=== PATIENT | male | born 1970 | race Caucasian/White ===

== ENCOUNTER 2022-08-10 08:24 | Outpatient (CLI) | payer OTHER, SELFPAY ==
--- NOTE | ~2022-08-10 | CT_ITS ---
CT Abdomen and Pelvis with contrast. History: Right lower quadrant pain. Spiral CT of the abdomen and pelvis was performed after the administration of intravenous contrast. 1 00 cc of Omnipaque 350 was administered intravenously without complication. Dose reduction technique was used on this scan by utilizing automated exposure control and iterative reconstruction technique. The dose-length product (DLP) was 715.56 mGy-cm. Findings: Scans through the lung bases demonstrate mild atelectatic change. The liver, spleen, pancreas, gallbladder, adrenals and kidneys are within normal limits. No evidence of aortic aneurysm. No lymphadenopathy is seen. There is no evidence of bowel obstruction. There is a large appendicolith at the base of the appendix measuring 1.9 x 1.0 cm. Appendix is dilated up to 15 mm in this region, mild periappendiceal inflamm atory stranding. No abscess or free air. Images through the pelvis were performed. Urinary bladder unremarkable. Prostate gland and seminal ve sicles are unremarkable. No ascites is seen. Impression: Findings suspicious for early acute appendicitis, as detailed above, with large appendicolith present . No abscess or free air. Reviewed, dictated and finalized at location . [employer] Impression: Findings suspicious for early acute appendicitis, as detailed above, with large appendicolith present. No abscess or free air.
[2022-08-10 08:55] LABS: Estimated Glomerular Filt Rate > 60
[2022-08-10 09:53] LABS: Basophils Percent Auto 0.2 % (0.2-1.2); Eosinophils Absolute Auto 0.2 K/mm3 (0-0.3); Eosinophils Percent Auto 1.7 % (0-4.4); Hematocrit 43.6 % (42.0-52.0); Hemoglobin 14.7 g/dL (14.0-18.0); Immature Granulocyte Absolute 0.05 K/mm3 (0.00-0.031); Immature Granulocyte Percent A 0.5 % (0-0.5); Lymphocytes Absolute Auto 1.36 K/mm3 (0.9-3.2); Lymphocytes Percent Auto 14.6 % (18.3-44.2); Mean Corpuscular HGB Conc 33.7 g/dl (32-36); Mean Corpuscular Hemoglobin 29.1 pg (26-34); Mean Corpuscular Volume 86.2 fl (80-100); Mean Platelet Volume 8.5 fl (7.4-10.4); Monocytes Absolute Auto 0.7 K/mm3 (0.1-0.6); Monocytes Percent Auto 7.8 % (2.6-8.5); Neutrophils Percent Auto 75.2 % (45.5-73.1); Platelet Count Result 269 k/mm3 (150-375); Red Blood Count 5.06 M/mm3 (4.6-6.20); Red Cell Distribution Width 13.2 % (11.5-14.5); White Blood Count 9.3 K/mm3 (4.5-10.0)
[2022-08-10 10:14] LABS: Alanine Aminotransferase 36 U/L (6-50); Albumin Level 4.6 g/dL (3.5-5.1); Alkaline Phosphatase 83 U/L (38-126); Anion Gap 7 mmol/L (8-16); Aspartate Amino Transferase 35 U/L (17-59); Bilirubin,Total 0.7 mg/dL (0.2-1.3); Blood Urea Nitrogen 16 mg/dL (9-20); Calcium 8.6 mg/dL (8.4-10.2); Carbon Dioxide 31 mmol/L (22-30); Chloride 99 mmol/L (98-107); Estimated Glomerular Filt Rate > 60; Glucose 105 mg/dL (65-110); Potassium 4.1 mmol/L (3.4-5.0); Sodium 137 mmol/L (137-145)
[2022-08-10 10:19] LABS: Add Urine Microscopic? NO; Appearance Urine Clear (Clear); Bilirubin Urine Negative (Negative); Blood Urine Negative (Negative); Color Urine Yellow (Yellow); Glucose Urine UA Negative (Negative); Ketones Urine Negative (Negative); Leukocyte Esterase Ur Negative LEU/UL (NEGATIVE); Nitrate Urine Negative (Negative); Protein Urine Negative (Negative); Specific Grav Ur <= 1.005 (1.001-1.035); Urobilinogen Urine 0.2 mg/dL (<2.0); pH Urine 5.5 (5.0-9.0)
== END 2022-08-10 08:25 | disposition home or self-care (01) ==
PROVIDERS: PCP Family Medicine; Visit Provider Physician Assistant
DX: R10.31 Right lower quadrant pain (principal); K38.1 Appendicular concretions
CPT/HCPCS: 74177; 80053; 81003; 85025; Q9967

== ENCOUNTER 2022-08-10 09:58 | Day surgery (SDC) | payer OTHER, SELFPAY ==
[2022-08-10] VITALS (12 sets, daily range): BP systolic 116–147; BP diastolic 70–94; PULSE 72–117; RESP 12–16; TEMP 36.2–36.7; O2SAT 93–100
--- NOTE | 2022-08-10 10:06 | ED.ABDPAIN ---
HPI - Abdominal Pain General Chief Complaint: Abdominal Pain <MARIA C Arellano Last Filed: 08/10/22 13:17> Stated Complaint: acute appendicitis <MARIA C Arellano Last Filed: 08/10/22 13:17> Time Seen by Provider: 08/10/22 10:05 <MARIA C Arellano Last Filed: 08/10/22 13:17> Source: patient <MARIA C Arellano Last Filed: 08/10/22 13:17> Mode of arrival: ambulatory <MARIA C Arellano Last Filed: 08/10/22 13:17> Limitations: no limitations <MARIA C Arellano Last Filed: 08/10/22 13:17> History of Present Illness HPI narrative: This is a 52-year-old male that presents emergency department for right lower quadrant pain. Reports he has been having abdominal pain ongoing over the last 2 days. On Tuesday he started to have generalized abdominal pain. Yesterday it started to localize to the right lower quadrant. It is associated with nausea and anorexia. He saw his primary care provider today and had outpatient blood work and a CT scan. His CT scan showed acute appendicitis so he was prompted to be seen in the ER. He has not eaten today yet, he did drink some water around 7 this morning. Denies fever, vomiting, dysuria, or hematuria. <MARIA C Arellano Last Filed: 08/10/22 13:17> Related Data Home Medications: Home Medications Medication Instructions Recorded Confirmed methocarbamol 750 mg tablet 750 mg PO QID 07/24/19 08/10/22 omega-3 fatty acids 1,000 mg 1,000 mg PO DAILY 07/24/19 08/10/22 capsule (Fish Oil Concentrate) glucosamine sulfate 1,500 mg oral mg PO 05/20/20 08/10/22 powder packet multivitamin (One-A-Day Essential 1 tablet PO DAILY 05/20/20 08/10/22 tablet) cholestyramine-aspartame 4 gram 4 g PO TID 08/27/20 08/10/22 oral powder (Cholestyramine Light) <MARIA C Arellano Last Filed: 08/10/22 13:17> Allergies/Adverse Reactions: Allergies Allergy/AdvReac Type Severity Reaction Status Date / Time lisinopril AdvReac Unknown Cough Verified 08/10/22 12:22 <Dominique Orourke PA-C - Last Filed: 08/10/22 13:17> Review of Systems Review of Systems: CONSTITUTIONAL: Denies fever EYES: Denies redness, or discharge. ENT: Denies congestion CARDIOVASCULAR: Denies chest pain RESPIRATORY: Denies cough GASTROINTESTINAL: Reports abdominal pain, nausea. Denies vomiting GENITOURINARY: Denies dysuria or hematuria. MUSCULOSKELETAL: Reports chronic back pain NEUROLOGIC: Denies weakness. PSYCHIATRIC: Denies anxiety or depression. <Dominique Orourke PA-C - Last Filed: 08/10/22 13:17> All systems reviewed & are unremarkable except as noted in HPI and below <Dominique Orourke PA-C - Last Filed: 08/10/22 13:17> [facility], [facility] Past Medical History Medical History: Medical History Chronic low back pain Essential (primary) hypertension Irritable bowel syndrome with diarrhea Mixed hyperlipidemia <MARIA C Arellano Last Filed: 08/10/22 13:17> Surgical History Surgical History: Surgical History Status post wisdom tooth extraction <MARIA C Arellano Last Filed: 08/10/22 13:17> Family History Family History: Family History Mother Cerebrovascular accident Family history of hypothyroidism Family history of diabetes mellitus in first degree relative <MARIA C Arellano Last Filed: 08/10/22 13:17> Social History Social History: Social History Smoking status: Never smoker Second hand tobacco smoke exposure: No Alcohol intake: current Drinks per week: 2 Substance use: never Substance use type: does not use Gender identity (if verbalized by the patient): Male <Dominique Orourke PA-C - Last Filed: 08/10/22 13:17> Exam Narrative: GENERAL: Well-ap
[2022-08-10] MEDS: ONDANSETRON INJ 4 MG/2 ML VIAL IV PUSH (10:26)
--- NOTE | 2022-08-10 11:38 | PM.IMHP ---
H&P: HPI History of Present Illness Date/Time: 08/10/22 11:28 Chief Complaint: right lower quadrant abdominal pain Narrative: This is a pleasant 52-year-old white male who began having some abdominal pain or just uncomfortable feeling across the abdomen mid day on Tuesday. Pt states that starting Tuesday, he developed diffuse lower abdominal pain during day, just below the belly button.? The following day, this localized/migrated to RLQ and has stayed there since.? States pain is 7/10 currently, but 9/10 at its worse.? He has a hard time describing, but states the pain is always there, not dull, and radiates/expands from the RLQ.? He has been nauseous, but has not vomited.? His Last bowel movement was mid day on 08/09. This was normal for him.? He has been drinking fluids okay, but has a poor appetite due to the nausea. States that any movements or deep breathes worsens the pain.?? He is passing gas okay.? Denies changes in stools character/frequency, urine, back pain, blood/mucus in stool, melena, recent alcohol use, NSAID use, association w/ any foods, or any previous abdominal surgeries (still has GB and appendix).? Last colonoscopy was [address] Narayan. he has also had multiple EGDs because of his history of GERD. Further workup in the ED reveals outpatient labs that showed a CBC in the high normal range. Electrolytes were unremarkable. Review of Systems Review of Systems: All systems reviewed & are unremarkable except as noted in HPI and below (HPI) Constitutional: Constitutional: Reports as per HPI, Denies chills and Denies fever(s) Eyes: Eyes: Reports no additional eye complaints ENT: Reports Normal hearing present and Denies dizziness Cardiovascular: Cardiovascular: Reports no additional cardiovascular complaints, Denies chest pain and Denies irregular heart rhythm Comments: History of hypertension and hyperlipidemia (controlled on meds ) --- see medication list Respiratory: Respiratory: Reports no additional respiratory complaints Comments: history of seasonal allergies and asthma. Patient states he has not used his rescue inhaler which is albuterol for many months. However, he does take 2 puffs of the fluticasone inhaler each morning Gastrointestinal: Gastrointestinal: Reports no additional gastrointestinal complaints, Denies abdominal pain and Denies bloating Comments: history of GERD with previous EGDs now well controlled with 20 mg omeprazole daily. History of irritable bowel syndrome and multiple previous colonoscopies most recent was 2016. He has had also had some benign colon polyps in the past. Genitourinary: Genitourinary: Denies hematuria Musculoskeletal: Musculoskeletal: Denies back pain Integumentary/Breasts: Skin/Breast: Reports system reviewed and no additional complaints, except as docu Neurologic: Reports Normal hearing present, Denies Abnormal speech present, Denies confusion and Denies dizziness Psychiatric: Psychiatric: Reports no additional psychiatric complaints and Denies confusion Comments: On sertraline to help control mood swings. No history of major depressive episodes. Endocrine: Endocrine: Reports no additional endocrine complaints Hematologic/Lymphatic: Hematologic/Lymphatic: Denies easy bleeding and Denies easy bruising Allergic/Immunologic: Allergic/Immunologic: Reports no additional allergic/immunologic complaints PMFSH Past Medical History Medical History Chronic low back pain Essential (primary) hypertension Irritable bowel syndrome with diarrhea Mixed hyperlipidemia Surgical History Surgical History Status post wisdom tooth extraction Family History Family History Mother Cerebrovascular accident Family history of hypothyroidism Family history of diabetes mellitus i
[2022-08-10] MEDS: LACTATED RINGERS 1,000 ML 30 ML IV CONT ×2 (12:26→14:50)
[2022-08-10] MEDS: PANTOPRAZOLE SODIUM IV 40 MG VIAL IV PUSH (12:32)
--- NOTE | 2022-08-10 12:38 | WPDANESEPPF ---
Anes - Initial Pre Proc Eval Procedure: Operation Date: 08/10/22 13:00 Proposed Procedures p Laparoscopic Appendectomy - Ariel Russ MD Date/Time: 08/10/22 12:38 Surgeon: Ariel Russ MD Pre Op Diagnosis: acute appendicitis Patient Data Age: 52 Gender: M Height: 1.78 m Weight: 93.8 kg Last Vital Signs Temp 36.4 C L 08/10/22 10:07 Pulse 72 08/10/22 12:10 Resp 16 08/10/22 12:10 BP 147/94 H 08/10/22 10:07 Pulse Ox 100 08/10/22 10:07 O2 Del Method Room Air 08/10/22 10:07 Allergies Allergy/AdvReac Type Severity Reaction Status Date / Time lisinopril AdvReac Unknown Cough Verified 08/10/22 12:22 Home Medications Medication Instructions Recorded Confirmed Type methocarbamol 750 mg tablet 750 mg PO QID 07/24/19 08/10/22 History omega-3 fatty acids 1,000 mg 1,000 mg PO DAILY 07/24/19 08/10/22 History capsule (Fish Oil Concentrate) albuterol sulfate 90 mcg/actuation 2 puff inhalation Q4-6H PRN 07/25/19 08/10/22 Rx aerosol inhaler (ProAir HFA) shortness of breath or wheezing #18 grams glucosamine sulfate 1,500 mg oral mg PO 05/20/20 08/10/22 History powder packet multivitamin (One-A-Day Essential 1 tablet PO DAILY 05/20/20 08/10/22 History tablet) cholestyramine-aspartame 4 gram 4 g PO TID 08/27/20 08/10/22 History oral powder (Cholestyramine Light) fluticasone propionate 220 1 puff inhalation Q12H #36 grams 09/01/21 08/10/22 Rx mcg/actuation HFA aerosol inhaler (Flovent HFA) loratadine 10 mg tablet See Rx Instructions .Route 12/07/21 08/10/22 Rx .COMPLEX #90 tabs rosuvastatin 10 mg tablet (Crestor) 10 mg PO DAILY #90 tabs 01/12/22 08/10/22 Rx fluticasone propionate 50 See Rx Instructions .Route 02/18/22 08/10/22 Rx mcg/actuation nasal .COMPLEX #48 grams spray,suspension amlodipine 5 mg tablet 5 mg PO DAILY #90 tabs 03/02/22 08/10/22 Rx rabeprazole 20 mg tablet,delayed 20 mg PO DAILY #90 tabs 04/08/22 08/10/22 Rx release sertraline 50 mg tablet See Rx Instructions .Route 06/21/22 08/10/22 Rx .COMPLEX #135 tabs losartan 50 mg tablet 50 mg PO DAILY #90 tabs 07/09/22 08/10/22 Rx Patient hx anesthesia problems: none Family hx anesthesia problems: none Results Review: All pre-operative results and documents have been reviewed as part of the pre-operative evaluation. [facility] Past Medical History Medical History Chronic low back pain Essential (primary) hypertension Irritable bowel syndrome with diarrhea Mixed hyperlipidemia Surgical History Surgical History Status post wisdom tooth extraction Family History Family History Mother Cerebrovascular accident Family history of hypothyroidism Family history of diabetes mellitus in first degree relative Social History Social History Smoking status: Never smoker Second hand tobacco smoke exposure: No Alcohol intake: current Drinks per week: 2 Substance use: never Substance use type: does not use Gender identity (if verbalized by the patient): Male Anes - Eval Final PreProcedure Day of Procedure 08/10/22 12:38 Patient weight: overweight Heart: regular rate and rhythm Lungs: clear to auscultation Airway: Mallampati scale class II Neurological: alert and oriented Last oral intake: >/= 8 hours ASA classification: III Emergent: yes Anesthetic plan: proceed Anesthesia type and monitoring: general ETT and standard monitoring Results Review: All pre-operative results and documents have been reviewed as part of the pre-operative evaluation. Informed Consent: The patient's anesthetic plan and its attendant risks and benefits were discussed with the patient/family/POA. Questions were solicited and answers provided to the satisfaction
--- NOTE | 2022-08-10 13:03 | WPDHPUPDATE1 ---
History and Physical Update Update Date/Time: 08/10/22 13:03 History and Physical has been reviewed, including an updated exam of the patient. There are NO changes in the patient's condition. Risks, benefits, and alternatives have been discussed and questions answered. Patient agrees to proceed with procedure.
[2022-08-10] MEDS: BUPIVACAINE/EPINEPHRINE 0.5% 30 ML VIAL 20 ML INFILTRATE (13:43)
--- NOTE | 2022-08-10 15:04 | W.PM.PROC2 ---
Procedure Note - Detailed Date of Procedure 08/10/22 Pre-op Diagnosis acute uncomplicated appendicitis Post-op Diagnosis Same Procedure Performed laparoscopic appendectomy Surgeon Ariel Russ MD [employer] Jeanne BRADFORD. OR [employer]ayer Anesthesia General Indications Patient had the classical history of slow onset abdominal pain moving to the right lower quadrant. He also had a CT scan showing an appendicolith and what appeared to be acute uncomplicated appendicitis without signs of perforation. (see H&P). Findings Patient had a fairly dilated proximal half of the appendix which is probably where the appendicolith was sitting. The appendix was injected but not perforated. The tip was sawing slightly adherent to the right pelvic sidewall just inferior to the cecum. No other specific abnormalities noted within the abdomen. Description of Procedure The patient was seen in the Emergency Room. The risks, benefits, complications, treatment options, and expected outcomes were discussed with the patient and/or family. The possibilities of reaction to medication, pulmonary aspiration, perforation of viscus, bleeding, recurrent infection, finding a normal appendix, the need for additional procedures, failure to diagnose a condition, and creating a complication requiring transfusion or operation were discussed. There was concurrence with the proposed plan and informed consent was obtained. The site of surgery was properly noted/marked. The patient was taken to Operating Room, and a time out was preformed which identified this as the proper patient, and the procedure verified as laparoscopic appendectomy, possible open. The patient was placed in the supine position and general anesthesia was induced, along with placement of an orogastric tube, SCD hose, and a Gupta catheter. The abdomen was prepped and draped in a sterile fashion. Local anesthetic using 0.5% Marcaine with epinephrine was infiltrated into the skin prior to making the incision at the umbilicus and prior to placing the other ports mentioned below. A 5 mm umbilical incision was made and the peritoneal cavity was accessed using the Veress needle technique. Once the abdomen was insufflated to 14 mmHg pressure a 5 mm XL trocar over the 0? 5 mm scope was carefully twisted into the abdomen via the umbilicus. The pneumoperitoneum was then established to steady pressure of 14 mm Hg. A 12 mm laparoscopic port was placed through a transverse suprapubic incision. An additional 5 mm cannula was then placed in in the left upper quadrant at the level care home between the left costal margin and the umbilicus under direct vision. A careful evaluation of the entire abdomen was carried out. The patient was placed in Trendelenburg and left lateral decubitus position. The small intestines were retracted in the cephalad and left lateral direction away from the pelvis and right lower quadrant. The patient was found to have an enlarged and inflamed appendix that was extending [into the right side of the pelvis with its base just lateral and posterior to the cecum and behind some overlying ileum. There was no evidence of perforation. The appendix was carefully dissected. Once it was free a 45 mm ethicon endogastroentestinal stapler with a vascular load was placed across the mesoappendix. This was fired and hemostasis was checked along the staple line and appeared to be adequate. There appeared to be some bleeding coming off the injected appendix. And a single unfolded sterile 4 x 4 was placed in the abdomen allowed to sit in the right pelvic gutter to absorb this and occasionally put pressure on the area. Then another cartridge containing a vascular load was applied and the stapler then placed right to the base of the appendix. This was also fired and bleeding was checked. For this patient, this divided the entire mesoappendix and we were able to proceed immediately to stapling off the appendix at it's junction with
[2022-08-10] MEDS: oxyCODONE HCL (*CRX) 5 MG TAB IR PO (16:07)
[2022-08-10] MEDS: diphenhydrAMINE HCl INJ 50 MG/ML VIAL 25 MG IV PUSH (16:20)
== END 2022-08-10 17:22 | disposition home or self-care (01) ==
LOC: ANHED 11:28 → ANHSURGERY 11:51
PROVIDERS: Emergency Provider Emergency Medicine; PCP Family Medicine; Visit Provider Surgery
PROC: 0DTJ4ZZ Resection of Appendix, Percutaneous Endoscopic Approach (ICD-10-PCS; CPT 44970; principal; 2022-08-10 13:00)
DX: K35.80 Unspecified acute appendicitis (principal); I10 Essential (primary) hypertension; E78.2 Mixed hyperlipidemia; K58.0 Irritable bowel syndrome with diarrhea; Z79.51 Long term (current) use of inhaled steroids
CPT/HCPCS: 44970; 88304; 96365; 96375; 99285; A9270; C9113; J0131; J0360; J1100; J1170; J1200; J2250; J2405; J2543; J2704; J2710; J3010; J7120

== ENCOUNTER 2023-01-04 09:13 | Outpatient (CLI) | payer OTHER, SELFPAY ==
--- NOTE | ~2023-01-04 | XR_ITS ---
PA, oblique, and lateral views of the left fourth finger MEDICAL HISTORY: Pain and swelling FINDINGS: No definite fracture or dislocation seen. Osseous alignment appears anatomic. Joint spaces are preserved. Soft tissues are unremarkable. IMPRESSION: No definite fracture or dislocation seen. Reviewed, dictated and finalized at [facility].
--- NOTE | ~2023-01-04 | XR_ITS ---
PA, oblique, and lateral views of the left third finger CLINICAL HISTORY: Pain and swelling FINDINGS: There is an oblique, intra-articular fracture at the volar aspect of the base of the third middle phalanx, minimally displaced. No other fracture seen. Joint spaces are preserved otherwise. So ft tissues are unremarkable. IMPRESSION: Oblique, intra-articular, minimally displaced fracture at the volar aspect of the base of the third m iddle phalanx. Reviewed, dictated and finalized at location M. IMPRESSION: Oblique, intra-articular, minimally displaced fracture at the volar aspect of t he base of the third middle phalanx.
== END 2023-01-04 09:14 | disposition home or self-care (01) ==
PROVIDERS: PCP Family Medicine; Visit Provider Physician Assistant
DX: S62.623A Displaced fracture of middle phalanx of left middle finger, initial encounter for closed fracture (principal); X58.XXXA Exposure to other specified factors, initial encounter
CPT/HCPCS: 73140

== ENCOUNTER 2024-11-06 14:28 | Outpatient (CLI) | payer OTHER, SELFPAY ==
--- NOTE | ~2024-11-06 | XR_ITS ---
3 VIEWS LUMBAR SPINE Ordering provider: Oscar Rivera MD History: . M[age] - Low back pain . Comparison: None. FINDINGS: VERTEBRAL BODIES: No visible fracture or subluxation. DISK SPACES: Normal. SOFT TISSUES: Normal. IMPRESSION: No acute osseous abnormality lumbar spine. Reviewed, dictated and finalized at location A.
== END 2024-11-06 14:29 | disposition home or self-care (01) ==
LOC: MICIMG 14:30
PROVIDERS: PCP Family Medicine; Visit Provider Family Medicine
DX: M54.50 Low back pain, unspecified (principal); G89.29 Other chronic pain
CPT/HCPCS: 72100